=== PATIENT | female | born 1995 | race Caucasian/White ===

== ENCOUNTER 2019-08-28 06:53 | Emergency (ER) | payer OTHER ==
[2019-08-28 07:09] VITALS: TEMP 99.5; BMI 37.8
[2019-08-28] MEDS ORDERED: FAMOTIDINE 20 MG/50 ML IVPB 20 MG/50 ML MG IVPB ONE ×2 (08:01→08:05)
[2019-08-28] MEDS ORDERED: ACETAMINOPHEN 1000 MG/100 ML VIAL (NON FORMULARY) IVPB ONE (08:01)
[2019-08-28] MEDS ORDERED: MAG HYDROX/AL HYDROX/SIMETH 30 ML UNIT-DOSE CUP PO ONE (08:01)
[2019-08-28] MEDS ORDERED: SODIUM CHLORIDE 1,000 ML IV STA ×2 (08:01→09:26)
[2019-08-28] MEDS ORDERED: MAG HYDROX/AL HYDROX/SIMETH 30 ML UNIT-DOSE CUP ONE (08:05)
[2019-08-28] MEDS ORDERED: ACETAMINOPHEN INJECTION 100 ML IVPB ONE (08:05)
--- NOTE | 2019-08-28 08:06 | PDOC ---
History of Present Illness - General Chief Complaint: Pain Stated Complaint: ABD PAIN Time Seen by Provider: 08/28/19 07:38 Past History - Past Medical History Allergies/Adverse Reactions: Allergies Allergy/AdvReac Type Severity Reaction Status Date / Time No Known Allergies Allergy Verified 08/28/19 07:09 Home Medications: Ambulatory Orders Famotidine [Pepcid -] 20 mg PO BID #28 tablet 08/28/19 Asthma: Yes COPD: No - Psycho Social/Smoking Cessation Hx Smoking History: Never smoked *Physical Exam - Vital Signs Last Vital Signs Temp Pulse Resp BP Pulse Ox 99.5 F 119 H 18 127/76 99 08/28/19 07:05 08/28/19 07:05 08/28/19 07:05 08/28/19 07:05 08/28/19 07:05 08/28/19 08:26 24 y/o G0 female with h/o mild persistent asthma (never hospitalized for this) and uterine fibroids c/o abdominal pain. Pain is located diffusely and can be isolated to the LUQ/epigastrium, burning in character, on/off time course/peristaltic, non-radiating and 10/10 when present. Pt was celebrating birthday at [facility] with . She had 1 drink of [place] rum. Symptoms are exacerbated by PO intake (get-kishan). She vomited x10 food-containing, non-bloody, initially non-bilious but in last episode noted some orange contents. She endorses nausea and chills but denies fever and diarrhea. shared meal and experienced diarrhea x1. Her last BM was yesterday and normal, non-bloody and w/o mucus. She said that since this AM she has had generalized UE arm weakness. This occurred this Am with GI symptoms. She denies dysuria, hematuria, MCALLISTER, SOB, CP. LMP 27 Jul 2019, 10 ppd, days Fam hx: Mother with pre-DM. Other maternal fam with HTN and DM. Father's health unknown. Surgical hx: denies Social hx: Denies smoking, social etoh, denies recreational drug use REVIEW OF SYSTEMS CONSTITUTIONAL: Absent: fever, chills, diaphoresis, generalized weakness, malaise, loss of appetite, weight change HEENT: Absent: rhinorrhea, nasal congestion, throat pain, throat swelling, difficulty swallowing, mouth swelling, ear pain, eye pain, visual changes CARDIOVASCULAR: Absent: chest pain, syncope, palpitations, irregular heart rate, lightheadedness , peripheral edema RESPIRATORY: Absent: cough, shortness of breath, dyspnea with exertion, orthopnea, wheezing, stridor, hemoptysis GASTROINTESTINAL: Absent: abdominal pain, abdominal distension, nausea, vomiting, diarrhea, constipation, melena, hematochezia GENITOURINARY: Absent: dysuria, frequency, urgency, hesitancy, hematuria, flank pain, genital pain MUSCULOSKELETAL: Absent: myalgia, arthralgia, joint swelling, back pain, neck pain SKIN: Absent: rash, itching, pallor HEMATOLOGIC/IMMUNOLOGIC: Absent: easy bleeding, easy bruising, lymphadenopathy, frequent infections ENDOCRINE: Absent: unexplained weight gain, unexplained weight loss, heat intolerance, cold intolerance NEUROLOGIC: Absent: headache, focal weakness or paresthesias, dizziness, unsteady gait, seizure, mental status changes, bladder or bowel incontinence PSYCHIATRIC: Absent: anxiety, depression, suicidal or homicidal ideation, hallucinations. GENERAL: AO x3 NAD HEAD: NCAT EYES: STEPHANIA, EOMI, sclera anicteric, conjunctiva clear. No ptosis. ENT: Ears normal, nares patent, oropharynx clear without exudates, moist mucous membranes. NECK: Trachea midline, full range of motion, supple. LUNGS: CTAB , no wheezes, no crackles, no accessory muscle use. HEART: RRR, S1, S2 without murmur, rub or gallop. > ABDOMEN: - Obese, soft, nondistended, normoactive bowel sounds in 4 quadrants, no guarding, no rebound, no hepatosplenomegaly, no masses, NEG Elizabeth, NEG pain at McBurney's point. - TTP in epigastrium and LUQ EXTREMITIES: 2+ pulses, warm, well-perfused, no edema. NEUROLOGICAL: Cranial nerves II through XII grossly intact. Normal speech, gait not observed. PSYCH: Normal mood, normal affect. SKIN: Warm, dry, normal turgor, no rashes or lesions noted A/P # Gastritis VS food poisoning VS - CBC, CMP, UA, U cx, EKG, bHCG - NS, Ofirmev, Maalox, famotidine 08/28/19 08:55 POCUS: NL GB 08/28/19 10:05 VS significant for persistent tachychardia, though droppin after 1 L. She is tolerating PO liquids and will recieve another L of NS. Plan to DC home on 2 weeks famotidine once regular rate as pt is clinically stable. 08/28/19 10:25 Pt VSS HR 89 manual assessment. She reports great improvement of symptoms. DC home as described above. ED Treatment Course - LABORATORY CBC & Chemistry Diagram: 08/28/19 07:50 08/28/19 07:50 Discharge - Discharge Information Problems reviewed: Yes Clinical Impression/Diagnosis: Gastritis Qualifiers: Gastritis type: unspecified gastritis Chronicity: acute Gastritis bleeding: without bleeding Qualified Code(s): K29.00 - Acute gastritis without bleeding Disposition: HOME - Additional Discharge Information Plan of Treatment: YOUR VISIT You came to the hospital because you were experiencing abdominal pain. You were seen in the emergency department and found to have gastritis. You received IV fluids and magnesium hydroxide (Maalox). You are now stable and may return home. MEDICATIONS You may continue to use Maalox (over the counter) to relieve your symptoms. ADDITIONAL CARE Please make an appointment to see a primary care provider 1 week from today. Since you do not have one, you can call to schedule an appointment at the [facility] residents' clinic, located at [address] [place] [address]. If you would like to continue seeing Dr. Byron Wagner, please ask for a Thursday morning appointment. ADDITIONAL INFORMATION Please call 911 or come directly to the emergency department if you experience recurrence of the symptoms that brought you to the hospital, unusual headache, vision change, shortness of breath, chest pain, numbness, tingling, loss of alertness/awareness, loss of function, unusual bleeding or any alarming symptoms. Prescriptions: Famotidine [Pepcid -] 20 mg PO BID #28 tablet - Follow up/Referral - Patient Discharge Instructions Patient Printed Discharge Instructions: Gastritis - Post Discharge Activity
--- NOTE | 2019-08-28 08:14 | PDOC ---
Attending Attestation - Resident Resident Name: Byron Wagner - ED Attending Attestation I have performed the following: I have examined & evaluated the patient, The case was reviewed & discussed with the resident, I agree w/resident's findings & plan, Exceptions are as noted - HPI HPI: 08/28/19 08:29 24yo female with acute onset of upper abd pain assoc with n/v overnight. Pt states she ate fried chicken and fries and some etoh last night. Pt states burning sensation to upper abd. Pt states last bm was a few days ago. Pt states vomiting was nbnb. Pt denies nausea at this time. Boyfriend at the same food. No fevers. No cp/sob. No cough. No dysuria. No hematuria. No back pain. No other complaints. - Physicial Exam PE: 08/28/19 08:30 Gen: aaox3, nad heart:+s1s2 reg lungs: cta b/l abd: soft, epigastric and LUQ ttp without rebound or guarding, no cva ttp, nondistended ext: no c/c/e - Medical Decision Making 08/28/19 08:31 a/p: 24yo female with epigastric pain -suspect gastritis, but ddx includes biliary colic, pancreatitis, duodenitis, gastrenteritis -will send labs -ivf hydration, gi meds -bedside ultrasound -will monitor and reassess -pt is nontoxic in appearance 08/28/19 08:34 biliary ultrasound neg for acute pathology pt feeling better with gi meds ivf hydration running will continue to monitor 08/28/19 09:26 mildly elevated wbc serum preg pending labs reviewed will continue to hydrate 08/28/19 09:41 pt drinking water feels better once not tachy, will be stable for dc to home with pepcid and gi follow up 08/28/19 10:45 HR 89 tolerated po intake stable for dc to home Heart Score/ECG Review - ECG Intrepretation Comment:: 08/28/19 09:22 sinus tach at 107, nl axis, nl interval, no acute st/t wave findings
[2019-08-28 08:54] LABS: BASO % 0.1 % (0-2.0); EOS % 0.1 % (0-4.5); HEMATOCRIT 40.2 % (32.4-45.2); HEMOGLOBIN 13.4 GM/dL (10.7-15.3); LYMPH % 3.2 % (8-40); MCH 27.5 pg (25.7-33.7); MCHC 33.3 g/dl (32.0-36.0); MEAN CELL VOLUME 82.6 fl (80-96); MEAN PLT VOLUME 8.5 fl (7.5-11.1); MONO % 4.6 % (3.8-10.2); PLATELET COUNT 300 K/MM3 (134-434); RBC 4.87 M/mm3 (3.60-5.2); RDW 13.7 % (11.6-15.6); WHITE BLOOD COUNT 12.5 K/mm3 (4.0-10.0)
[2019-08-28 09:16] LABS: ALBUMIN 3.6 g/dl (3.4-5.0); BILIRUBIN,TOTAL 0.5 mg/dL (0.2-1); BLOOD UREA NITROGEN 13.2 mg/dL (7-18); CALCIUM 8.8 mg/dL (8.5-10.1); CREATININE 0.8 mg/dL (0.55-1.3); POTASSIUM 4.3 mmol/L (3.5-5.1)
[2019-08-28 09:43] VITALS: BP 107/56
[2019-08-28 09:49] LABS: PH,URINE >= 9.0 (5.0-8.0); URINE APPEARANCE CLEAR; URINE BILIRUBIN NEGATIVE (NEGATIVE); URINE COLOR YELLOW; URINE GLUCOSE (UA) NEGATIVE (NEGATIVE); URINE KETONE TRACE (NEGATIVE); URINE LEUK ESTERASE NEGATIVE (NEGATIVE); URINE NITRITE NEGATIVE (NEGATIVE); URINE PROTEIN NEGATIVE (NEGATIVE); URINE UROBILINOGEN 0.2 mg/dL (0.2-1.0)
[2019-08-28 10:47] VITALS: PULSE 89
--- NOTE | 2019-08-28 12:01 | EKG ---
Test Reason : Blood Pressure : / mmHG Vent. Rate : 107 BPM Atrial Rate : 107 BPM P-R Int : 136 ms QRS Dur : 074 ms QT Int : 336 ms P-R-T Axes : 029 001 015 degrees QTc Int : 448 ms SINUS TACHYCARDIA NO PREVIOUS ECGS AVAILABLE Confirmed by FELIPE PAIZ MD ([id number]) on 08/28/2019 12:01:16 PM Referred By: Confirmed By:FELIPE PAIZ MD
[2019-08-28 12:32] LABS: ANISOCYTOSIS 1+; MACROCYTOSIS 0; OVALOCYTE 1+; PLATELET ESTIMATE NORMAL
== END 2019-08-28 10:53 | disposition home or self-care (01) ==
LOC: JER 06:53
PROC: 3E0337Z Introduction of Electrolytic and Water Balance Substance into Peripheral Vein, Percutaneous Approach (ICD-10-PCS; principal; 2019-08-28)
PROC: 3E033GC Introduction of Other Therapeutic Substance into Peripheral Vein, Percutaneous Approach (ICD-10-PCS; 2019-08-28)
PROC: 3E033NZ Introduction of Analgesics, Hypnotics, Sedatives into Peripheral Vein, Percutaneous Approach (ICD-10-PCS; 2019-08-28)
PROC: BF4CZZZ Ultrasonography of Hepatobiliary System, All (ICD-10-PCS; 2019-08-28)
DX: K29.00 Acute gastritis without bleeding (principal)
CPT/HCPCS: 36415; 76705-TC; 80053; 81003; 83690; 84703; 85025; 93005; 93010; 99284-25; J0131; J7030